=== PATIENT | female | born 1965 | race Caucasian/White ===

== ENCOUNTER 2016-12-22 15:08 | Emergency (ER) | payer MEDICAID ==
[2016-12-22 15:08] VITALS: BMI 33.7
[2016-12-22 15:14] VITALS: RESP 20
[2016-12-22 15:31] VITALS: PULSE 74
--- NOTE | 2016-12-22 15:34 | C.PDOC ---
History Of Present Illness 51 y/o female with Hx of HTN, Seizure disorder and DM presents to ED with complaints of left sided chest pain radiating to shoulder, axillary area and back. Patient states pain is worse with movement of arm and deep breaths. Patient repoorts no medication was taken for pain and today pain was persistent which prompted visit to ED today. Patient denies sob, sweats, abdominal pain, cough, dizziness, nausea, vomiting or any other complaints at this time. Time Seen by Provider: 12/22/16 15:20 Chief Complaint (Nursing): Chest Pain History Per: Patient History/Exam Limitations: no limitations Onset/Duration Of Symptoms: Days Current Symptoms Are (Timing): Still Present Past Medical History Reviewed: Historical Data, Nursing Documentation, Vital Signs Vital Signs: Last Vital Signs Temp 98.4 F 12/22/16 15:26 Pulse 74 12/22/16 15:30 Resp 20 12/22/16 15:30 BP 138/84 12/22/16 15:30 Pulse Ox 95 12/22/16 15:37 - Medical History PMH: Anxiety, Asthma, Depression, HTN, Seizures Surgical History: Cholecystectomy Family History: States: Unknown Family Hx - Social History Hx Tobacco Use: Yes Hx Alcohol Use: No Hx Substance Use: No - Immunization History Hx Tetanus Toxoid Vaccination: No Hx Influenza Vaccination: No Hx Pneumococcal Vaccination: No Review Of Systems Except As Marked, All Systems Reviewed And Found Negative. Constitutional: Negative for: Fever, Chills Cardiovascular: Positive for: Chest Pain Respiratory: Negative for: Shortness of Breath Gastrointestinal: Negative for: Nausea, Vomiting, Diarrhea Skin: Negative for: Rash Neurological: Negative for: Dizziness Physical Exam - Physical Exam Appears: Non-toxic Skin: Normal Color, Warm, Dry, No Rash Head: Atraumatic, Normacephalic Eye(s): bilateral: Normal Inspection Oral Mucosa: Moist Chest: Tenderness (To left sternal border and costal left margin radiating to back) Cardiovascular: Rhythm Regular Respiratory: Normal Breath Sounds, No Rales, No Rhonchi, No Wheezing Gastrointestinal/Abdominal: Soft, No Tenderness, No Guarding, No Rebound Extremity: Normal ROM, Capillary Refill (<2 seconds), No Deformity, No Swelling Neurological/Psych: Oriented x3, Normal Speech, Normal Motor, Normal Sensation ED Course And Treatment - Laboratory Results Result Diagrams: 12/22/16 15:44 12/22/16 15:44 Lab Interpretation: Normal ECG: Interpreted By Me ECG Rhythm: Sinus Rhythm ECG Interpretation: No Acute Changes O2 Sat by Pulse Oximetry: 95 (RA) Pulse Ox Interpretation: Normal - Radiology CXR: Interpreted by Me CXR Interpretation: Yes: No Acute Disease Reevaluation Time: 16:34 Reassessment Condition: Improved (after Tylenol.) Medical Decision Making Medical Decision Making: Plan: * CXR * Blood work * EKG Disposition - Disposition Referrals: Chandu Nicole MD [Medical Doctor] - Disposition: HOME/ ROUTINE Disposition Time: 16:39 Condition: IMPROVED Prescriptions: Acetaminophen [Tylenol 325mg tab] 650 mg PO Q4 PRN #120 tab PRN Reason: Pain, Severe (8-10) Instructions: Chest Wall Pain (ED) Forms: [employer] (Ukrainian) Print Language: GEORGIAN - Clinical Impression Clinical Impression: Left-sided chest wall pain - Scribe Statement The provider has reviewed the documentation as recorded by the Scribe Radha Joseph All medical record entries made by the Scribe were at my direction and personally dictated by me. I have reviewed the chart and agree that the record accurately reflects my personal performance of the history, physical exam, medical decision making, and the department course for this patient. I have also personally directed, reviewed, and agree with the discharge instructions and disposition.
[2016-12-22 15:48] LABS: BASO # 0.1 K/uL (0.0-0.2); BASO % 1.1 % (0.0-2.0); EOS # 0.2 K/uL (0.0-0.7); EOS % 1.8 % (0.0-4.0); HEMATOCRIT 42.5 % (34.0-47.0); LYMPH # 1.5 K/uL (1.0-4.3); LYMPH % 17.9 % (20.0-40.0); MEAN CELL VOLUME 78.8 fL (81.0-99.0); MEAN CORPUSCULAR HEMOGLOBIN 26.5 pg (27.0-31.0); MEAN CORPUSCULAR HGB CONC 33.6 g/dL (33.0-37.0); MEAN PLATELET VOLUME 8.4 fL (7.2-11.7); MONO # 0.5 K/uL (0.0-0.8); MONO % 5.6 % (0.0-10.0); RED CELL DISTRIBUTION WIDTH 14.2 % (11.5-14.5); WHITE BLOOD COUNT 8.4 K/uL (4.8-10.8)
[2016-12-22 15:56] LABS: CHLORIDE 105 mmol/L (98-107); POTASSIUM 3.8 mmol/L (3.6-5.2); SODIUM 143 mmol/L (132-148)
[2016-12-22 15:58] LABS: BILIRUBIN,TOTAL 0.6 mg/dL (0.2-1.3); GFR AFRICAN-AMERICAN > 60
[2016-12-22 15:59] LABS: ALB/GLOB RATIO 1.2 (1.0-2.1); ALKALINE PHOSPHATASE 99 U/L (38-126); ALT/SGPT 40 U/L (9-52); AST/SGOT 25 U/L (14-36); BLOOD UREA NITROGEN 16 mg/dL (7-17); CARBON DIOXIDE 26 mmol/L (22-30); GLUCOSE,RANDOM 92 mg/dL (65-105); TOTAL PROTEIN 7.7 g/dL (6.3-8.3)
[2016-12-22 16:00] LABS: CALCIUM 9.5 mg/dl (8.6-10.4)
[2016-12-22 16:44] VITALS: BP 121/69; TEMP 98; O2SAT 94
--- NOTE | 2016-12-22 17:21 | RAD ---
HISTORY: chest pain COMPARISON: Chest x-ray performed 03/09/14 TECHNIQUE: Chest PA and lateral FINDINGS: Examination limited by habitus and hypoinflation. LUNGS: No focal consolidation. Please note that chest x-ray has limited sensitivity for the detection of pulmonary masses. PLEURA: No significant pleural effusion identified. No definite pneumothorax . CARDIOVASCULAR: The cardiomediastinal silhouette appears within normal limits of size. OSSEOUS STRUCTURES: Mild degenerative changes. VISUALIZED UPPER ABDOMEN: Unremarkable. OTHER FINDINGS: None. IMPRESSION: No focal consolidation, significant pleural effusion, or definite pneumothorax identified.
--- NOTE | 2016-12-25 18:10 | CARD ---
APPROVED REPORT EKG Measurement Heart [id number] <Conclusion> Normal sinus rhythm Minimal voltage criteria for LVH, may be normal variant Borderline ECG
== END 2016-12-22 16:53 | disposition home or self-care (01) ==
LOC: C.ER 15:08
DX: R07.89 Other chest pain (principal)

== ENCOUNTER 2017-06-26 13:14 | Emergency (ER) | payer MEDICAID ==
[2017-06-26 13:21] VITALS: BMI 43.0
[2017-06-26 13:25] VITALS: TEMP 97.9
--- NOTE | 2017-06-26 13:50 | C.PDOC ---
History Of Present Illness 51 year old female presents to the ED for evaluation of upper back pain which began 2 days ago. She states pain is worse on her right side and is exacerbated with neck movement. Patient took Advil with minimal relief. Patient states she woke up with the pain and denies direct trauma/injury, falls, headache, extremity numbness/weakness. Time Seen by Provider: 06/26/17 13:32 Chief Complaint (Nursing): Back Pain History Per: Patient History/Exam Limitations: no limitations Onset/Duration Of Symptoms: Days (2) Current Symptoms Are (Timing): Still Present Quality Of Discomfort: "Pain" Previous Symptoms: Back Pain Associated Symptoms: denies: Incontinence, New Weakness, New Numbness Exacerbating Factor(s): Movement Additional History Per: Patient Past Medical History Reviewed: Historical Data, Nursing Documentation, Vital Signs Vital Signs: Last Vital Signs Temp 97.9 F 06/26/17 13:21 Pulse 70 06/26/17 14:34 Resp 16 06/26/17 14:34 BP 121/80 06/26/17 14:34 Pulse Ox 98 06/26/17 14:34 - Medical History PMH: Anxiety, Asthma, Depression, HTN, Seizures Surgical History: Cholecystectomy Family History: States: Unknown Family Hx - Social History Hx Tobacco Use: Yes Hx Alcohol Use: No Hx Substance Use: No - Immunization History Hx Tetanus Toxoid Vaccination: No Hx Influenza Vaccination: No Hx Pneumococcal Vaccination: No Review Of Systems Musculoskeletal: Positive for: Back Pain (upper, right>left) Neurological: Negative for: Weakness, Numbness, Headache Physical Exam - Physical Exam Appears: Non-toxic, No Acute Distress Skin: Normal Color, Warm, Dry Head: Atraumatic, Normacephalic Eye(s): bilateral: Normal Inspection Oral Mucosa: Moist Neck: Normal ROM, No Midline Cervical Tenderness, No Step Off Deformity, Supple Chest: Symmetrical, No Deformity, No Tenderness Cardiovascular: Rhythm Regular, No Murmur Respiratory: Normal Breath Sounds, No Rales, No Rhonchi, No Wheezing Back: Normal Inspection, No Vertebral Tenderness, No Paraspinal Tenderness, Other (trapezius muscle tenderness on palpation, right>left) Extremity: Normal ROM, Capillary Refill (less than 2 seconds ) Neurological/Psych: Oriented x3, Normal Speech, Normal Motor, Normal Sensation Gait: Steady ED Course And Treatment O2 Sat by Pulse Oximetry: 99 (on RA) Pulse Ox Interpretation: Normal Medical Decision Making Medical Decision Making: Impression: 51 year old female with upper back pain Plan: * Toradol IM * Valium PO Progress: Toradol IM and Valium PO administered. Re-Eval: Patient seated comfortable in no distress. She report pain is improving. She has no fever or neck stiffness. She feels comfortable going home and will be discharged with Rx Disposition Counseled Patient/Family Regarding: Diagnosis, Need For Followup, Rx Given - Disposition Referrals: Chandu Nicole MD [Medical Doctor] - Disposition: HOME/ ROUTINE Disposition Time: 14:24 Condition: STABLE Additional Instructions: Vaya a hopper mdico o la clnica en 2-5 medina sin falta, para mas evaluacin. [place] los medicamentos le indicado. Volver a la susanna de emergencia en cualquier momento si los sntomas persisten o empeoran. Prescriptions: Cyclobenzaprine [Cyclobenzaprine HCl] 10 mg PO TID #21 tab Ibuprofen [Motrin] 600 mg PO Q8 #30 tab Instructions: Upper Back Pain (DC) Forms: [employer] (Indonesian) Print Language: NIUEAN - POA Present On Arrival: None - Clinical Impression Clinical Impression: Upper back pain on right side - PA / HOUSE DETECTIVE / Resident Statement MD/DO has reviewed & agrees with the documentation as recorded. - Scribe Statement The provider has reviewed the documentation as recorded by the Scribe (Ester Geiger) All medical record entries made by the Scribe were at my direction and personally dictated by me. I have reviewed the chart and agree that the record accurately reflects my personal performance of the history, physical exam, medical decision making, and the department course for this patient. I have also personally directed, reviewed, and agree with the discharge instructions and disposition.
[2017-06-26 14:35] VITALS: BP 121/80; PULSE 70; RESP 16
[2017-06-26 17:21] VITALS: O2SAT 99
== END 2017-06-26 14:34 | disposition home or self-care (01) ==
LOC: C.ER 13:14
DX: M54.89 Other dorsalgia (principal)
CPT/HCPCS: 96372; 99283; J1885

== ENCOUNTER 2017-08-06 12:50 | Emergency (ER) | payer MEDICAID ==
[2017-08-06 12:50] VITALS: BMI 43.0
[2017-08-06 12:54] VITALS: RESP 18
--- NOTE | 2017-08-06 13:25 | C.PDOC ---
History Of Present Illness 52 yo female come in for evaluation of left shoulder and upper arm pain gradually developed for past 4 days. Pt reports, pain is constant, aching, worse with Left arm movement, reproducible over upper left arm. Otherwise, pt denies known trauma or injury, overuse of left arm, denies CP, SOB, dyspnea, diaphoresis, palpitation, denies weakness, sensory or vascular deficits to left arm. Ambulate to Ed for evaluation, appears in pain. Time Seen by Provider: 08/06/17 12:58 Chief Complaint (Nursing): Upper Extremity Problem/Injury History Per: Patient Onset/Duration Of Symptoms: Gradual Past Medical History Reviewed: Historical Data, Nursing Documentation, Vital Signs Vital Signs: Last Vital Signs Temp 97.9 F 08/06/17 12:53 Pulse 90 08/06/17 12:53 Resp 18 08/06/17 12:53 BP 152/92 H 08/06/17 12:53 Pulse Ox 100 08/06/17 12:53 - Medical History PMH: Anxiety, Asthma, Depression, HTN, Seizures Surgical History: Cholecystectomy Family History: States: Unknown Family Hx - Social History Hx Tobacco Use: Yes Hx Alcohol Use: No Hx Substance Use: No - Immunization History Hx Tetanus Toxoid Vaccination: No Hx Influenza Vaccination: No Hx Pneumococcal Vaccination: No Review Of Systems Except As Marked, All Systems Reviewed And Found Negative. Constitutional: Negative for: Fever, Chills ENT: Negative for: Throat Pain, Throat Swelling Cardiovascular: Negative for: Chest Pain, Palpitations, Orthopnea, Edema, Light Headedness Respiratory: Negative for: Cough, Shortness of Breath, Wheezing Gastrointestinal: Negative for: Nausea, Vomiting, Abdominal Pain, Diarrhea Musculoskeletal: Positive for: Other (Left shoulder and upper arm). Negative for: Neck Pain Skin: Negative for: Rash, Bruising Neurological: Negative for: Weakness, Numbness, Altered Mental Status, Headache , Dizziness Physical Exam - Physical Exam Appears: Well, Non-toxic, No Acute Distress Skin: Normal Color, Warm, Dry, No Rash, No Ecchymosis Eye(s): bilateral: PERRL Neck: Normal ROM, Trachea Midline, No Midline Cervical Tenderness, No Paracervical Tenderness, No Step Off Deformity, Supple Cardiovascular: Rhythm Regular, No Murmur, No JVD Respiratory: No Decreased Breath Sounds, No Accessory Muscle Use, No Stridor, No Wheezing Back: Normal Inspection Extremity: Normal ROM (mod discofmort to Left shoulder abduction/extension due to pain), Tenderness (superior aspect Left shoulder extends down to left upper arm, reproducible. No palpable deformity, no skin changes, no neurovascular deficits distally.), Capillary Refill (less than 2sec to Left hand), No Deformity, No Swelling Neurological/Psych: Oriented x3, Normal Speech, Normal Motor, Normal Sensation, Normal Reflexes ED Course And Treatment ECG: Interpreted By Me, Viewed By Me ECG Rhythm: Sinus Rhythm ECG Interpretation: No Changes From Prior Interpretation Of ECG: SR@81/min, LAD, no acute T wave or ST-T changes O2 Sat by Pulse Oximetry: 100 Pulse Ox Interpretation: Normal - Other Rad Left shoulder X-Ray: Interpreted by Me, Viewed By Me Interpretation: (+) calcification in shoulder noted, no fx or dislocation Progress Note: On re-evaluation, pt is afebrile, hemodynamicaly stable. NOn- toxic. PulseOx 100% RA. neck: SUpple, (-) JVD. Lungs: CTA B/L, BS equal B/L. CVS: (+)S1S2, reg. Left shoulder; exam c/w shoulder tenderness superior extend down to upper arm, reproducible. No deformity, no neurovascular defciits , no skin changes. Neurologicaly intact. Left shoulder XR review and appears c /w shoulder calcifiction. Pt has clinical findings c/w calcific tendonitis. Sling applied to Left shoulder. Pt avdised. ref. to f/u with PMD, Ortho in 2- 3 days for re-eval. return if any new changes. Disposition Counseled Patient/Family Regarding: Studies Performed, Diagnosis, Need For Followup, Rx Given - Disposition Referrals: Chandu Nicole MD [Medical Doctor] - Disposition: HOME/ ROUTINE Disposition Time: 13:32 Condition: STABLE Additional Instructions: SLing to Left arm for 1 week Light duty to left arm Take medication as prescribed Follow up with PMD, Orthopedist in 2-3 days for re-evaluation. return to ED if any worsening or new changes. Prescriptions: Methocarbamol [Robaxin] 500 mg PO TID #14 tab Prednisone [Deltasone] 40 mg PO DAILY #6 tablet traMADol [Ultram] 50 mg PO TID #10 tab Instructions: Calcific Tendonitis of the Shoulder (DC) Print Language: KYRGYZ - Clinical Impression Clinical Impression: Calcific tendinitis
--- NOTE | 2017-08-06 13:58 | RAD ---
PROCEDURE: Radiographs of the Left Shoulder HISTORY: pain COMPARISON: Correlation made with prior chest radiograph 12/22/2016 FINDINGS: BONES: No evidence of acute displaced fracture nor dislocation. The osseous structures intact. JOINTS: Re- demonstrated are moderate degenerative osteoarthritic changes left acromioclavicular joint SOFT TISSUES: Soft tissue calcifications adjacent to the greater tuberosity consistent with calcific tendinitis or bursitis. OTHER FINDINGS: None. IMPRESSION: Tendinitis or bursitis no acute fractures. Degenerative osteoarthritis left acromioclavicular joint.
[2017-08-06 14:20] VITALS: BP 148/92; PULSE 76; TEMP 98.1; O2SAT 98
--- NOTE | 2017-08-08 21:17 | CARD ---
APPROVED REPORT EKG Measurement Heart [id number] <Conclusion> Normal sinus rhythm Moderate voltage criteria for LVH, may be normal variant Borderline ECG
== END 2017-08-06 15:04 | disposition home or self-care (01) ==
LOC: C.ER 12:50
DX: M75.32 Calcific tendinitis of left shoulder (principal); I10 Essential (primary) hypertension; Z87.891 Personal history of nicotine dependence

== ENCOUNTER 2018-08-08 23:39 | Emergency (ER) | payer MEDICAID ==
[2018-08-08 23:39] VITALS: BMI 43.0
[2018-08-08 23:52] VITALS: BP 150/91; PULSE 74; RESP 16; TEMP 98.6; O2SAT 100
--- NOTE | 2018-08-09 00:31 | C.PDOC ---
History Of Present Illness 53 year old female presents to the ED c/o swelling below her left ear for the past 1 day. Patient reports having cold like symptoms for the past 4 days as well. Patient denies fever, chills, headache, rash, throat pain, SOB. Time Seen by Provider: 08/08/18 23:55 Chief Complaint (Nursing): ENT Problem History Per: Patient History/Exam Limitations: None Onset/Duration Of Symptoms: Days (5) Current Symptoms Are (Timing): Still Present Quality (Ear): Swelling Anticoagulant/Antiplatlet Use?: No Recent Aspirin Use: No Past Medical History Reviewed: Historical Data, Nursing Documentation, Vital Signs Vital Signs: Last Vital Signs Temp 98.6 F 08/08/18 23:47 Pulse 74 08/08/18 23:47 Resp 16 08/08/18 23:47 BP 150/91 H 08/08/18 23:47 Pulse Ox 100 08/08/18 23:47 - Medical History PMH: Anxiety, Asthma, Depression, HTN, Seizures Denies: Chronic Kidney Disease Surgical History: Cholecystectomy Family History: States: Unknown Family Hx - Social History Hx Tobacco Use: Yes Hx Alcohol Use: No Hx Substance Use: No - Immunization History Hx Tetanus Toxoid Vaccination: No Hx Influenza Vaccination: No Hx Pneumococcal Vaccination: No Review Of Systems Constitutional: Negative for: Fever, Chills ENT: Positive for: Ear Pain. Negative for: Ear Discharge, Nose Discharge, Throat Pain Respiratory: Positive for: Cough. Negative for: Shortness of Breath Gastrointestinal: Negative for: Nausea, Vomiting, Abdominal Pain Musculoskeletal: Negative for: Neck Pain Skin: Negative for: Rash Neurological: Negative for: Weakness, Numbness, Headache, Dizziness Physical Exam - Physical Exam Appears: Non-toxic, No Acute Distress Skin: Normal Color, Warm, Dry Head: Atraumatic, Normacephalic Eye(s): bilateral: Normal Inspection Ear(s): Bilateral: Normal Oral Mucosa: Moist Tongue: No Swelling Lips: No Swelling Teeth: Normal Dentition Gingiva: No Abscess Throat: Normal, No Erythema, No Exudate Neck: Normal ROM, Supple Lymphatic: Adenopathy (left periauricular ), Other (No parotid gland enlargement. No erythema,warmth or fluctuance) Neurological/Psych: Oriented x3, Normal Speech, Normal Cognition Gait: Steady ED Course And Treatment O2 Sat by Pulse Oximetry: 100 (ON RA) Pulse Ox Interpretation: Normal Progress Note: Plan: - CLindamycin 300 mg PO. Patient was given fist dose of antibiotics in the ED. Patient advised to follow up with PMD and ENT for further evaluation. Disposition Counseled Patient/Family Regarding: Diagnosis, Need For Followup, Rx Given - Disposition Referrals: Chandu Nicole MD [Medical Doctor] - Disposition: HOME/ ROUTINE Disposition Time: 00:25 Condition: STABLE Additional Instructions: Take medications as directed Follow up with PMD Return to ER if worse Prescriptions: Clindamycin [Cleocin] 300 mg PO QID #20 cap Promethazine DM [Phenergan DM Syrup] 5 ml PO QID #100 ml Instructions: Viral Upper Respiratory Infection, Adult (DC), Lymphadenitis (DC) Forms: [employer] (Faroese) Print Language: LUXEMBOURGISH - Clinical Impression Clinical Impression: Lymphadenopathy, Upper respiratory infection - PA / STARCH TREATING ASSISTANT / Resident Statement MD/DO has reviewed & agrees with the documentation as recorded. - Scribe Statement The provider has reviewed the documentation as recorded by the Scribe Leonel Lam All medical record entries made by the Scribmartin were at my direction and personally dictated by me. I have reviewed the chart and agree that the record accurately reflects my personal performance of the history, physical exam, medical decision making, and the department course for this patient. I have also personally directed, reviewed, and agree with the discharge instructions and disposition.
== END 2018-08-09 00:38 | disposition home or self-care (01) ==
LOC: C.ER 23:39
DX: R59.1 Generalized enlarged lymph nodes (principal); J06.9 Acute upper respiratory infection, unspecified